=== PATIENT | male | born 1975 | race Asian ===

== ENCOUNTER 2023-04-03 13:09 | Emergency (ER) | payer BC ==
[~2023-04-03] VITALS: Ht 182.9 cm; Wt 104.5 kg
[2023-04-03 13:15] VITALS: TEMP 97.9
[2023-04-03] MEDS ORDERED: METF-1211 PO (13:23)
[2023-04-03] MEDS ORDERED: BUPIVACAINE HCL/PF 0.5% 30 ML VIAL ID ONE (14:15)
[2023-04-03] MEDS ORDERED: CEPHALEXIN MONOHYDRATE 500 MG CAPSULE PO ONE (14:15)
[2023-04-03] MEDS ORDERED: PERTUSS(ACELL),DIPH,TET VAC/PF 0.5 ML SYRINGE IM. ONE (14:15)
[2023-04-03] MEDS ORDERED: LIDOCAINE 1% 10 ML VIAL ID ONE (14:15)
[2023-04-03] MEDS ORDERED: BUPIVACAINE HCL/PF 0.5% 10 ML VIAL ID ONE (14:15)
[2023-04-03] MEDS ORDERED: CEPH-558 PO (16:10)
[2023-04-03 16:12] VITALS: BP 135/82; PULSE 82; RESP 16
[2023-04-03] MEDS ORDERED: BACITRACIN 0.9 GM PACKET OINTMENT TP ONE (16:15)
== END 2023-04-03 16:22 | disposition home or self-care (01) ==
LOC: EMS 13:10
DX: S61.211A Laceration without foreign body of left index finger without damage to nail, initial encounter (principal); S62.631A Displaced fracture of distal phalanx of left index finger, initial encounter for closed fracture; E11.9 Type 2 diabetes mellitus without complications; X58.XXXA Exposure to other specified factors, initial encounter; Y93.89 Activity, other specified; Y92.89 Other specified places as the place of occurrence of the external cause; Y99.8 Other external cause status
CPT/HCPCS: 99283; 73130; 90715; 90471; 12001; J3490 ×2